=== PATIENT | male | born 1995 | race Caucasian/White ===

== ENCOUNTER 2019-12-25 12:19 | Emergency (ER) | payer OTHER ==
[~2019-12-25] VITALS: Ht 175.3 cm; Wt 61.2 kg
[2019-12-25 12:25] VITALS: BP 171/64
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
[2019-12-25] MEDS ORDERED: NALOXONE 0.4 MG/ML VIAL IVP ONE (12:35)
--- NOTE | 2019-12-25 12:35 | NUR ---
DR. DUVALL AT BEDSIDE EVALUATING PT
[2019-12-25] MEDS ORDERED: NALOXONE PFS 2 MG/2 ML SYR IVP STA (12:42)
--- NOTE | 2019-12-25 12:49 | NUR ---
ADMINISTERED INTRANASAL NARCAN, 2MG
[2019-12-25 13:53] VITALS: BP 154/71
--- NOTE | 2019-12-25 13:54 | NUR ---
Patient discharged with v/s stable. Written and verbal after care instructions given and explained. Patient alert, oriented and verbalized understanding of instructions. Ambulatory w/ [facility] GAIT in custody OF [facility]. All questions addressed prior to discharge. ID band removed. Patient advised to follow up with PMD.
== END 2019-12-25 13:54 ==
LOC: MED 12:19
DX: F19.10 Other psychoactive substance abuse, uncomplicated (principal); F17.200 Nicotine dependence, unspecified, uncomplicated; F15.10 Other stimulant abuse, uncomplicated
CPT/HCPCS: 96374; 99283; J2310